=== PATIENT | female | born 1985 | race Caucasian/White ===

== ENCOUNTER → 2021-03-12 | Outpatient (CLI) | payer OTHER ==
[~2021-03-12] MED LIST: CYCL10 PO; FLUO10; HYDACE5 PO; IBUP200; LORA10; NAPR550 PO
[2021-03-12 08:35] LABS: BASOPHILS ABSOLUTE AUTO 0.03 K/mm3 (0.00-0.23); BASOPHILS PERCENT AUTO 0 % (0-2); EOSINOPHILS PERCENT AUTO 0 % (0-6); Hematocrit 38.1 % (33.0-51.0); Hemoglobin 13.3 g/dL (11.5-16.0); IMMATURE GRAN ABSOLUTE AUTO 0.01 K/mm3 (0.00-0.10); IMMATURE GRAN PERCENT AUTO 0 % (0-1); LYMPHOCYTES ABSOLUTE AUTO 0.98 K/mm3 (0.84-5.20); LYMPHOCYTES PERCENT AUTO 12 % (21-46); MONOCYTES ABSOLUTE AUTO 0.53 K/mm3 (0.16-1.47); MONOCYTES PERCENT AUTO 7 % (4-13); Mean Corpuscular HGB 29.3 pg (26.0-34.0); Mean Corpuscular HGB Conc 34.9 g/dL (31.5-36.5); Mean Corpuscular Volume 84 fL (80-100); Mean Platelet Volume 9.2 fL (9.1-12.4); NEUTROPHILS ABSOLUTE AUTO 6.48 K/mm3 (1.96-9.15); NEUTROPHILS PERCENT AUTO 81 % (41-73); Platelet Count 396 K/mm3 (150-400); RDW Coefficient Variation 12.7 % (11.7-14.2); RDW Standard Deviation 38.6 fL (35.1-46.3); Red Blood Cell Count 4.54 M/mm3 (3.80-5.20); White Blood Cell Count 8.03 K/mm3 (4.00-11.30)
[2021-03-12 09:07] LABS: Albumin, Blood 3.9 g/dL (3.4-5.0); Albumin/Globulin Ratio 1.2 (0.8-1.8); Bilirubin, Total 0.7 mg/dL (0.1-1.0); Bun/Creatinine Ratio 5.7 (12.0-20.0); Creatinine, Blood 1.06 mg/dL (0.40-1.00); Globulin, Blood 3.2 g/dL (2.2-4.0); Total Protein, Blood 7.1 g/dL (6.4-8.2)
== END | disposition home or self-care (01) ==
LOC: LAB SHORT 08:30 → LAB 08:30
PROVIDERS: Physician Assistant Surgical
DX: R10.32 Left lower quadrant pain (principal)
CPT/HCPCS: 80053; 85025

== ENCOUNTER → 2022-03-26 | Outpatient (CLI) | payer OTHER | END | disposition home or self-care (01) | LOC: LAB 10:00 → LAB SHORT 10:00 | DX: R10.32 Left lower quadrant pain (principal) | CPT/HCPCS: 83993 ==

== ENCOUNTER 2023-06-08 10:16 | Day surgery (SDC) | payer OTHER ==
[2023-06-08] VITALS (11 sets, daily range): BP systolic 118–134; BP diastolic 68–79
[~2023-06-08] VITALS: Ht 172 cm; Wt 60.0 kg
[~2023-06-08 10:16] MED LIST changes: +BUPR150ER PO; +MONT10T; +TAMO10; +VITAMIN D32000 UNI1 PO; +ZYRTEC10 M2 PO
--- NOTE | 2023-06-08 11:24 | NUR ---
History, Chart, Medications and Allergies reviewed before start of procedure. Ambulatory in Day [facility]. Pre-Op teaching done. Pt verbalizes understanding. Patient confirms NPO status and agrees with scheduled surgery. Patient reports completing Chlorhexadine shower X2 prior to admission to hospital. Surgical site prepped with 2% Chlorhexidine cloth wipe. Lungs clear T/O to Auscultation. Patient States Post-Procedure ride home has been arranged.
--- NOTE | 2023-06-08 14:30 | NUR ---
Discharge instructions reviewed with patient. Patient verbalizes understanding. Copy given to patient to take home. Patient States Post-Procedure ride home has been arranged. Discharged via wheelchair to private car for ride home.
== END 2023-06-08 14:32 | disposition home or self-care (01) ==
LOC: ORSCMMR 10:16 → ORD 11:30 → ORSCMMR 14:32
PROVIDERS: Obstetrics & Gynecology
PROC: 0UT74ZZ Resection of Bilateral Fallopian Tubes, Percutaneous Endoscopic Approach (ICD-10-PCS; principal; 2023-06-08 11:30)
DX: Z30.2 Encounter for sterilization (principal); N80.399 Endometriosis of the pelvic peritoneum, other specified sites, unspecified depth; Z85.3 Personal history of malignant neoplasm of breast; Z17.0 Estrogen receptor positive status [ER+]; Z79.899 Other long term (current) drug therapy; J45.909 Unspecified asthma, uncomplicated; F41.8 Other specified anxiety disorders
CPT/HCPCS: 84703; 88302; A9270; J0690; J1100; J1790; J1885; J2250; J2405; J2704; J2710; J3010; J7120